=== PATIENT | female | born 1965 | race Caucasian/White ===

== ENCOUNTER → 2020-01-06 16:41 | Outpatient (CLI) | payer OTHER, SELFPAY ==
--- NOTE | ~2020-01-06 | MR_ITS ---
EXAMINATION: MR knee RT wo con DATE: 01/06/2020 17:52 INDICATION: Medial meniscal tear presenting with right knee pain TECHNIQUE: Magnetic resonance imaging (MRI) of the right knee was performed without intravenous contr ast. Sequences included coronal PD-weighted FSE, coronal PD-weighted FS FSE, sagittal T2-weighted FS E, sagittal PD-weighted FS FSE and axial PD weighted fat saturated FSE. COMPARISON: None. FINDINGS: Medial compartment: Medial meniscus is normal. Small region of heterogeneous cartilage signal at the anterior weightbeari ng medial femoral condyle suggesting mild fissuring without degenerative subarticular changes. Lateral compartment: Lateral meniscus is normal. Small region of deep chondral fissuring at the posteromedial aspect of th e lateral tibial plateau without degenerative subarticular changes. Articular cartilage is otherwise normal. Patellofemoral compartment: Partial-thickness patellar cartilage loss with deep chondral fissuring and small foci of subarticular edema at the patellar apical ridge and medial facet and partial-thickness fissuring without degenera tive subarticular changes at the lateral facet. Shallow chondral ulceration at the caudal aspect of t he trochlear groove. Ligaments and tendons: Anterior and posterior cruciate ligaments are normal. The medial collateral ligament and fibular odalys ateral ligament complex are normal. Patellar tendon is normal. Minimal tendinopathy at the medial sally e of the distal quadriceps tendon. The visualized medial and lateral hamstring tendons as well as the iliotibial band are normal. Fluid: Small knee joint effusion at the suprapatellar pouch. There is also a small Medina's cyst. No loose os teochondral bodies identified. Osseous/other: Aside from the minimal scattered degenerative subarticular edema there is normal marrow signal. No fr acture or pathologic marrow replacing process. IMPRESSION: 1. 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 2. Small right knee joint effusion and small Medina's cyst. Reviewed, dictated and finalized at location A. [facility] IMPRESSION: 1. Patellofemoral predominant mild tricompartmental osteoarthritis with high-gr tiffanie patellar chondromalacia. 2. Small right knee joint effusion and small Medina's cyst.
== END ==
DX: M17.11 Unilateral primary osteoarthritis, right knee (principal); S83.241A Other tear of medial meniscus, current injury, right knee, initial encounter; M71.21 Synovial cyst of popliteal space [Baker], right knee; M25.461 Effusion, right knee
CPT/HCPCS: 73721